=== PATIENT | male | born 1995 | race Caucasian/White ===

== ENCOUNTER 2016-12-02 08:45 | Day surgery (SDC) | payer BC ==
[2016-11-28 14:32] VITALS: BMI 25.6
--- NOTE | 2016-12-02 05:10 | HP ---
HISTORY AND PHYSICAL CHIEF COMPLAINT: Perforation of the left tympanic membrane. HISTORY OF PRESENT ILLNESS: The patient is a 21-year-old male who was recently seen in my office complaining of having decreased hearing in his left ear. The patient states that he had ventilation tubes inserted into both ears by Dr. Cooley when he was approximately 3 years ago. He subsequently developed a small perforation in the left tympanic membrane and was seen at the [facility] and underwent 2 tympanoplasties. The last one was done in 2005. He was seen there in December 2005 and it was felt that the perforation that the tympanoplasty was successful. 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 This was in November of 2006. It encompassed approximately 10% to 20% on the left tympanic membrane. It was recommended to the patient's mother at that time that he would be a candidate for a fat myringoplasty. He was advised that if this is not successful then a repeat formal tympanoplasty would be possible. Unfortunately the patient was lost to follow up here from that time until the present time. He is a college student now and is essentially on his own with regards to his healthcare. He is concerned about the significant hearing loss in the left ear. At the time that he was seen in my office, clinical examination of the left ear revealed a perforation of left tympanic membrane encompassing approximately 10% to 15% of the left tympanic membrane. Audiological examination revealed that the patient had a mild conductive hearing loss and a large ear volume on a tympanogram, both consistent with a perforation of the tympanic membrane. It was recommended that he undergo a left tympanoplasty and he agreed. PAST MEDICAL HISTORY: Past medical history reveals that he has no allergies to medications. He is not currently on any medications. Previous surgeries include bilateral myringotomy with insertion of ventilation tubes and a tympanoplasty x2. There is history of asthma, diabetes mellitus or hypertension. REVIEW OF SYSTEMS: The review of systems is completely unremarkable. PHYSICAL EXAMINATION: This patient is a pleasant 21-year-old male who is alert and cooperative. HEENT EXAMINATION: Patient is normocephalic. Tympanic membranes on the right is normal. Right middle ear space is free of any fluid or infection. Inspection of the left tympanic membrane reveals approximately a 10% to 20% central perforation of the tympanic membrane. The middle ear ossicles appear to be intact and the middle ear space is free of any infection or cholesteatoma. Pupils are equal, round and react to light and accommodation. Extraocular movements within normal limits. Intranasal examination reveals moderate septal deviation with compensatory hypertrophy of inferior turbinates. Examination of oropharynx, palpation of the neck, cranial nerves 2 through 12 and the remainder of the head and neck exam are within normal limits. CHEST/CARDIOVASCULAR: Both lung sarmiento are clear to percussion and auscultation. The patient in regular sinus rhythm. S1 and S2 are present without murmurs. Peripheral pulses are bilaterally symmetrical and within normal limits. ABDOMEN: There is no evidence of any masses, megaly or tenderness. The abdomen is soft. Skin is unremarkable. Musculoskeletal and neurological and the remainder of the physical exam is essentially within normal limits. IMPRESSION: Perforation of the left tympanic membrane. PLAN: The patient is scheduled to undergo a fat myringoplasty of the left tympanic membrane. Please note that this may be scheduled as a right myringoplasty and that should be changed to a left fat myringoplasty. The procedure will be done under general anesthesia. ATTENTION RNS IN THE PRE-SURGICAL AREA: I have not ordered any pre-surgical prophylactic antibiotics for this patient. If the pharmacy department sends any pre- surgical prophylactic antibiotics to the presurgical area for this patient, they should be returned to the pharmacy department and make sure that the patient's account is credited appropriately. The only medications that I have ordered pre-surgically is for this patient to receive 1000 mg of OFIRMEV IV, to be given once an intravenous line has been established. I have discussed the risks, benefits and alternative therapies for the above-mentioned procedure and for both sedation/analgesia as well as necessary blood product administration, if indicated, as they pertain to this patient. The patient has indicated his or her understanding and acceptance of the risks and procedures discussed. MMODL / IJN: [id number] /
[~2016-12-02 08:45] MED LIST: DEXAMETHASONE SOD PHOSPHATE 10 MG/ML 1 ML VIAL IV ONE; HYDROmorphone 0.5 MG/0.5 ML SYRINGE IVP PRN; LACTATED RINGERS 1,000 ML IV SCH; LIDOCAINE 1% 20 ML VIAL (10MG/ML) FOR IV START INTRADERMA PRN; MIDAZOLAM 2 MG/2 ML VIAL IV PRN; ONDANSETRON 4 MG/2 ML VIAL IVP ONE; Pre Op ABX Message 1 EACH MISC MISCELLANE ONE; SCOPOLAMINE 1.5MG/72HR PATCH TRANSDERM ONE
[2016-12-02] MEDS ORDERED: ACETAMINOPHEN IV (For NPO) 1,000 MG in EMPTY BAG 1 BAG IVPB ONE (09:45)
[2016-12-02] MEDS ORDERED: PROPOFOL 10 MG/ML 20 ML VIAL IV ONE (10:16)
[2016-12-02] MEDS ORDERED: MIDAZOLAM 2 MG/2 ML VIAL ONE (10:16)
[2016-12-02] MEDS ORDERED: ROCURONIUM BROMIDE 10 MG/ML 10 ML VIAL IV ONE (10:16)
[2016-12-02] MEDS ORDERED: GLYCOPYRROLATE 0.2 MG/ML 2 ML VIAL ONE (10:16)
[2016-12-02] MEDS ORDERED: ONDANSETRON 4 MG/2 ML VIAL ONE (10:16)
[2016-12-02] MEDS ORDERED: NEOSTIGMINE 1 MG/ML 10 ML VIAL ONE (10:16)
[2016-12-02] MEDS ORDERED: fentaNYL (PF) 50 MCG/ML 2 ML AMP ONE (10:16)
[2016-12-02] MEDS ORDERED: LIDOCAINE 1% INJ 10MG/ML (20 ML MDV) ONE (10:16)
[2016-12-02] MEDS ORDERED: SUCCINYLCHOLINE CHLORIDE 100 MG/5 ML SYR IV ONE (10:16)
[2016-12-02] MEDS ORDERED: BUPIVACAINE-EPI 0.5%-1:200,000 10 ML VIAL SQ ONE ×2 (10:51)
[2016-12-02] MEDS ORDERED: LACTATED RINGERS 1,000 ML IV ONE (11:00)
[2016-12-02] MEDS ORDERED: OFLOXACIN 0.3% OPHTH DROPS 5 ML BOTTLE LEFT EAR ONE (11:54)
[2016-12-02] MEDS ORDERED: OFLOXACIN 0.3% OTIC DROPS 5 ML BTL LEFT EAR ONE (11:54)
[2016-12-02] MEDS ORDERED: BACITRACIN 500 UNIT/GM OINT 28.4 GM TUBE TOPICAL ONE (11:54)
[2016-12-02] MEDS ORDERED: GELATIN SPONGE,ABSORB (SMALL) 1 EACH SPONGE TOPICAL ONE (11:56)
[2016-12-02 12:48] VITALS: TEMP 97.4
[2016-12-02 13:11] VITALS: RESP 16
[2016-12-02 14:06] VITALS: BP 115/60; PULSE 88
--- NOTE | 2016-12-05 22:38 | OP ---
OPERATIVE REPORT DATE OF SURGERY: 12/02/2016. PREOPERATIVE DIAGNOSIS: Perforation of the left tympanic membrane. POSTOPERATIVE DIAGNOSIS: Perforation of the left tympanic membrane. ANESTHESIA: General. OPERATIVE PROCEDURE: Right fat myringoplasty of the right ear. OPERATING SURGEON: Dr. Saavedra. COMPLICATIONS: None. ESTIMATED BLOOD LOSS: Less than 5 mL. OPERATIVE PROCEDURE: The patient was placed on the operating table in supine position. After uneventful induction and endotracheal intubation, satisfactory general anesthesia was obtained. The patient's left ear was prepped and draped in the usual and customary fashion. Next the fat graft was harvested from the medial side of the left earlobe. The proposed incision was outlined using a [employer] marking pen to renuka the area on the medial side of the left earlobe. Next, using a #69 [place] blade, an incision was made through the skin only. The area had previously been infiltrated with approximately 0.5 mL of 1% Marcaine with epinephrine 1:100,000. Next, using a pair of sharp curved Randall scissors, a generous portion of earlobe fat was harvested in the usual and customary fashion. In the process of harvesting the fat, the lateral side of the earlobe was "buttonholed." The area that was "buttonholed," meaning the lateral surface had been penetrated, was very small. (However, the patient and the patient's family will be notified of this after surgery.) The harvested fat was subsequently placed in normal saline. Care was taken to inspect the fat to make sure that no epithelial elements had been included, and none were. The wound defect on the medial surface of the left earlobe was closed using 5-0 rapid-absorbing Vicryl in interrupted buried fashion. In addition to this, the small laceration created by the buttonhole effect on the lateral surface of the left earlobe was closed using a combination of a single 5-0 rapid-absorbing Vicryl suture and Dermabond, so-called tissue glue. Attention was next directed to the patient's left ear where, using a #3 aural speculum, the left external auditory canal was cleansed of all wax and debris. Although the perforation was quite evident, immediately it was noted that the patient had a rather large anterior wall bulge caused by the condyle of the mandible. This partially obscured the view of the perforation, which was located on the anterior inferior quadrant of the left tympanic membrane. It was with some difficulty that the perforation was visualized in such a manner that the edges were freshened using a combination of a Durbin needle, upbiting otologic forceps and a myringotomy knife. The edges were freshened in such a fashion as to cause the edges to bleed but not to significantly enlarge the perforation itself. The middle ear ossicles appeared to be intact, and there was no infection in the middle ear space. The entire external auditory canal had previously been irrigated with Betadine solution. Next the harvested fat was inspected and was trimmed in the usual fashion. The fat that was harvested with approximately 4 times larger than the actual perforation. With some difficulty and using a combination of a Durbin needle and an annulus elevator, the fat tissue graft was teased into position such that a portion of the fat graft was medial to the perforation of the tympanic membrane, and an equal portion was lateral to the perforation of the left tympanic membrane. Further inspection revealed that the entire perforation was covered, although again the anterior wall bulge made this somewhat difficult. Next, multiple Gelfoam pledgets which had been saturated with Floxin solution were placed in the external auditory canal lateral to the graft. This was done approximately [address] the external auditory canal. The remaining portion of the external auditory canal was filled with dry Gelfoam pledgets and bacitracin ointment. At this point, the procedure was terminated. There were no intraoperative complications. The patient tolerated the procedure well and was returned to the recovery room in satisfactory condition. Again it should be noted that the patient's family and the patient will be notified of the fact that the left ear had a small buttonhole laceration on the lateral aspect of the left earlobe. MMODL / IJN: [id number] /
== END 2016-12-02 14:55 | disposition home or self-care (01) ==
LOC: OR 08:45
PROVIDERS: ATTEND Otolaryngology
DX: H72.92 Unspecified perforation of tympanic membrane, left ear (principal); H90.12 Conductive hearing loss, unilateral, left ear, with unrestricted hearing on the contralateral side; Z87.891 Personal history of nicotine dependence
CPT/HCPCS: 69421; J2250; J1100; J2710; J2405; J2001; J3010; J0131; J0330; J2704

== ENCOUNTER 2018-06-27 08:24 | Emergency (ER) | payer BC ==
[2018-06-27 08:31] VITALS: RESP 18
--- NOTE | 2018-06-27 08:50 | ED ---
Back Pain HPI - General Chief Complaint: Back Pain/Injury Stated Complaint: Poss fractured tailbone Time Seen by Provider: 06/27/18 08:35 Source: patient, RN notes reviewed, old records reviewed Limitations: no limitations - History of Present Illness Initial Comments: Patient is a 23-year-old male presents weren't a birthday 5 days after slipping and falling and hitting his tailbone. Patient reports that he was tailbone on the edge of his car. He states since that time is some redness and swelling over the tailbone. Patient denies any fevers or chills. Denies any loss of control bowel or urine habits. He denies the pain radiating down the legs. He's never had any pilonidal cyst before. Patient denies any other symptoms. - Related Data Home Medications Medication Instructions Recorded Confirmed Ibuprofen [Motrin Ib] 600 mg PO Q6H PRN 06/27/18 06/27/18 Previous Rx's Medication Instructions Recorded Sulfamethox-Tmp 800-160Mg [Bactrim 2 tab PO Q12HR #40 tab 06/27/18 DS 800-160 mg] Allergies Allergy/AdvReac Type Severity Reaction Status Date / Time No Known Allergies Allergy Verified 06/27/18 09:41 Review of Systems ROS Statement: Those systems with pertinent positive or pertinent negative responses have been documented in the HPI. ROS Other: All systems not noted in ROS Statement are negative. Past Medical History Additional Past Medical History / Comment(s): HX LT EARDRUM PUNCTURE YEARS AGO History of Any Multi-Drug Resistant Organisms: None Reported Additional Past Surgical History / Comment(s): LT EAR SX X 3 Past Anesthesia/Blood Transfusion Reactions: Postoperative Nausea & Vomiting (PONV) Past Psychological History: Anxiety, Depression Smoking Status: Former smoker Past Alcohol Use History: Occasional Past Drug Use History: None Reported - Past Family History Father Family Medical History: Deep Vein Thrombosis (DVT) General Exam - General Exam Comments Initial Comments: Patient is a 23-year-old male. Alert and oriented. No significant distress. Limitations: no limitations General appearance: alert, in no apparent distress Head exam: Present: atraumatic, normocephalic, normal inspection Eye exam: Present: normal appearance, PERRL, EOMI. Absent: scleral icterus, conjunctival injection, periorbital swelling ENT exam: Present: normal exam, mucous membranes moist Neck exam: Present: normal inspection. Absent: tenderness, meningismus, lymphadenopathy Respiratory exam: Present: normal lung sounds bilaterally. Absent: respiratory distress, wheezes, rales, rhonchi, stridor Cardiovascular Exam: Present: regular rate, normal rhythm, normal heart sounds. Absent: systolic murmur, diastolic murmur, rubs, gallop, clicks GI/Abdominal exam: Present: soft, normal bowel sounds. Absent: distended, tenderness, guarding, rebound, rigid Extremities exam: Present: normal inspection, full ROM, normal capillary refill. Absent: tenderness, pedal edema, joint swelling, calf tenderness Back exam: Present: tenderness ( is tenderness over the sacrum and coccyx. Evidence of erythema and swelling over the sacrum. No significant area of fluctuance at this time.) Neurological exam: Present: alert, oriented X3, CN II-XII intact Psychiatric exam: Present: normal affect, normal mood Skin exam: Present: warm, dry, intact, normal color. Absent: rash Course Vital Signs 06/27/18 08:28 Temperature 97.8 F Pulse Rate 78 Respiratory 18 Rate Blood Pressure 117/54 O2 Sat by Pulse 100 Oximetry Procedures - Incision & Drainage Indication: Nidal abscess Site: buttock Size (cm): 5 Anesthetic Used: lidocaine 1% Amount (mLs): 5 I&D Cleaning Method: Iodine Sterile Field Used?: Yes Scalpel Used: #11 Needle Aspiration Performed?: Yes Irrigation Performed?: Yes I&D Drainage Obtained: Pus, Blood Packing: Iodoform Culture Obtained?: Yes Patient Tolerated Procedure: well, no complications Medical Decision Making - Medical Decision Making 23-year-old male presents emergency room today with tailbone swelling and pain after a fall. He is evidence of pilonidal abscess. Due to the following to do an x-ray of the sacrum and coccyx is negative for any acute process. Patient's incision and drainage and purulent fluid was removed from the pilonidal cyst. It was packed. I will put the Patient on antibiotics. Discussed needs follow- up with surgery. Discussed return parameters. - Radiology Data Radiology results: report reviewed Sacrum and coccyx appear unremarkable. No acute fracture dislocation noted. No sacroiliac joint widening. Disposition Clinical Impression: Pilonidal abscess Disposition: HOME SELF-CARE Condition: Good Instructions (If sedation given, give patient instructions): Pilonidal Cyst (ED) Additional Instructions: Packing needs to be removed in the next 2 days. Follow-up with primary care physician. Return to the emergency department if any alarming signs or symptoms occur. Follow-up with a surgeon. Do warm sits baths. Motrin and Tylenol for pain. Prescriptions: Sulfamethox-Tmp 800-160Mg [Bactrim DS 800-160 mg] 2 tab PO Q12HR #40 tab Is patient prescribed a controlled substance at d/c from ED?: No Referrals: Jack John MD [Primary Care Provider] - 1-2 days Shelley Valdez MD [STAFF PHYSICIAN] - 1-2 days Time of Disposition: 10:16
--- NOTE | 2018-06-27 09:11 | XR ---
EXAMINATION TYPE: XR sacrum coccyx DATE OF EXAM: 06/27/2018 CLINICAL HISTORY: Fall with subsequent coccygeal pain TECHNIQUE: A single AP view of the sacrum is obtained. 2 views of the coccyx were also obtained. COMPARISON: None. FINDINGS: There is slight limitation in evaluation of the coccyx due to overlying stool and bowel ga s. However the coccyx appears intact and unremarkable. There is no acute fracture/dislocation evident in the visualized portions of the pelvis. The hip and sacroiliac joints appear symmetric and unrema rkable. The overlying soft tissue appears unremarkable. IMPRESSION: Sacrum and coccyx appear unremarkable. No acute fracture or dislocation is seen. No sacro iliac joint widening.
[2018-06-27 10:38] VITALS: BP 102/67; PULSE 85; TEMP 98.2
== END 2018-06-27 10:36 | disposition home or self-care (01) ==
LOC: EC 08:24
DX: L05.01 Pilonidal cyst with abscess (principal); Z87.891 Personal history of nicotine dependence; Z98.890 Other specified postprocedural states; W01.10XA Fall on same level from slipping, tripping and stumbling with subsequent striking against unspecified object, initial encounter
CPT/HCPCS: 10080; 72220; 87070; 87205; 99284

== ENCOUNTER → 2018-09-24 | Outpatient (CLI) | payer BC ==
--- NOTE | 2018-09-26 13:08 | BMR ---
EXAMINATION TYPE: MR breast BILAT wo/w con DATE OF EXAM: 09/24/2018 COMPARISON: None HISTORY: Gynecomastia TECHNIQUE: A series of fat and water weighted images in the long and short axis views of both breasts are obtained in conjunction with dynamic contrast MRI with subtraction technique. The patient was i njected with 9ml mL intravenous Gadavist gadolinium contrast. Three-dimensional and additional post processing imaging is created on independent workstation and reviewed during official interpretation of this study. FINDINGS: LEFT BREAST: No abnormal enhancement is identified. There is very minimal retroareolar tissue lidya tible with mild gynecomastia. There is nothing to suggest a solid mass. CAD post processed images w ere unremarkable. RIGHT BREAST: No abnormal enhancement is identified. There is very minimal retroareolar tissue comp atible with mild gynecomastia. There is nothing to suggest a solid mass. CAD post processed images were unremarkable. No chest wall irregularity. A few nonenlarged lymph nodes were seen. IMPRESSIONS: BI-RADS 2-benign. Bilateral minimal retroareolar symmetric gynecomastia is seen without MR evidence of malignancy. However no mammogram is available for comparison at this institution and b ilateral mammogram would be recommended for full workup of gynecomastia if not performed at an outsid e institution.
== END | disposition home or self-care (01) ==
LOC: RADMRIMAIN 20:46
PROVIDERS: ATTEND Surgery
DX: N62 Hypertrophy of breast (principal)
CPT/HCPCS: 77049; C8937; A9585

== ENCOUNTER 2021-05-21 22:01 | Emergency (ER) | payer BC ==
[2021-05-21 22:48] VITALS: BP 118/68; PULSE 77; RESP 18; TEMP 98.9
--- NOTE | 2021-05-21 23:01 | ED ---
ENT HPI - General Chief complaint: ENT Stated complaint: Wants covid screening-at home test+ Source: patient Mode of arrival: ambulatory - History of Present Illness Initial comments: Binu is a healthy 25-year-old male who is fully vaccinated for COVID-19. Patient reports had a runny nose for 3 days. He has had 2 positive home COVID- 19 test but he is supposed attend a tomorrow and his family wanted to confirm that he is in fact only positive. Family insisted he come to the hospital for a "real test". Patient isn't having chest pain palpitations or fevers or chills. He states his only symptom really is a runny nose. - Related Data Home Medications Medication Instructions Recorded Confirmed Ibuprofen [Motrin Ib] 600 mg PO Q6H PRN 06/27/18 06/27/18 Previous Rx's Medication Instructions Recorded Sulfamethox-Tmp 800-160Mg [Bactrim 2 tab PO Q12HR #40 tab 06/27/18 DS 800-160 mg] Allergies Allergy/AdvReac Type Severity Reaction Status Date / Time No Known Allergies Allergy Verified 05/21/21 22:48 Review of Systems ROS Statement: Those systems with pertinent positive or pertinent negative responses have been documented in the HPI. ROS Other: All systems not noted in ROS Statement are negative. Past Medical History Additional Past Medical History / Comment(s): HX LT EARDRUM PUNCTURE YEARS AGO History of Any Multi-Drug Resistant Organisms: None Reported Additional Past Surgical History / Comment(s): LT EAR SX X 3 Past Anesthesia/Blood Transfusion Reactions: Postoperative Nausea & Vomiting (PONV) Past Psychological History: Anxiety, Depression Smoking Status: Never smoker Past Alcohol Use History: Occasional Past Drug Use History: None Reported - Past Family History Father Family Medical History: Deep Vein Thrombosis (DVT) General Exam - General Exam Comments Initial Comments: Physical Exam GENERAL: Patient is well-developed and well-nourished. Patient is nontoxic and well-hydrated and is in no distress. HENT: Normocephalic, Atraumatic. EYES: PERRL, EOMI PULMONARY: Unlabored respirations. CARDIOVASCULAR: RRR Warm and well perfused extremities ABDOMEN: Non-distended SKIN: No rashes or bruising : Deferred NEUROLOGIC: Alert and oriented Normal speech Normal gait MUSCULOSKELETAL: Moving all extremities with no apparent injury Course Vital Signs 05/21/21 22:45 Temperature 98.9 F Pulse Rate 77 Respiratory 18 Rate Blood Pressure 118/68 O2 Sat by Pulse 99 Oximetry Medical Decision Making - Medical Decision Making Patient was seen and evaluated the triage [place], patient requesting a COVID-19 test. No significant symptoms, stable vital signs,, test was obtained. Given the patient's O2 positive outpatient test I do feel the patient is positive for COVID-19. She'll be discharged home in stable condition with plan for supportive care. Disposition Clinical Impression: Encounter for screening for COVID-19 Disposition: HOME SELF-CARE Condition: Stable Instructions (If sedation given, give patient instructions): COVID-19 (Coronavirus Disease 2019) (ED) Is patient prescribed a controlled substance at d/c from ED?: No Referrals: Jack John MD [Primary Care Provider] - 1-2 days
== END 2021-05-22 00:25 | disposition home or self-care (01) ==
LOC: EC 22:01
DX: U07.1 COVID-19 (principal)
CPT/HCPCS: 87635; 99283